=== PATIENT | male | born 1980 | race Caucasian/White ===

== ENCOUNTER 2017-02-23 21:08 | Emergency (ER) | payer OTHER ==
--- NOTE | 2017-02-23 22:11 | ED NURSING NOTES ---
Clinical Report - Nurses [facility] [address] [place] [address] 02/23/2017 21:09 Patient: VIRGEN WILLIAMSON TRIAGE Triage time 21:17. Acuity: LEVEL 4. Chief Complaint: INJURY TO LEFT KNEE. 21:21. Alert. SEPSIS SCREEN: Sepsis Screen. Negative (no infection suspected/documented). CECILIA COMA SCORE: Hartline Coma Scale: 15- eyes open spontaneously (4); best verbal response- oriented x 4 (5); best motor response- obeys commands (6). --21:21 Deni Arguello R.N. 21:16 02/23/17. BP: 139/74. HR: 83. RR: 12. O2 saturation: 96% on room air. Temp: 98.6 F (oral). Pain level now: 01/04. --21:21 Deni Arguello R.N. Weight: 113.3 kg stated. Height/Length: 69 inches Per Patient. BMI: 36.9. --21:20 Deni Arguello R.N. Medications None. --21:19 Deni Arguello R.N. Medication/allergy information source: the patient. --21:21 Deni Arguello R.N. Allergies No Known Drug Allergy. --21:19 Deni Arguello R.N. History Arrived by private vehicle. Historian: patient. Unaccompanied. Primary physician (Olaf). This occurred (1 weeks ago). Occurred (Gym). Mechanism of injury: (Landed on knee while wrestling). 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 PAST MEDICAL HX: Tetanus status: up-to-date. Immunizations: up-to-date. SOCIAL HX: Never smoker. No alcohol use or drug use. No infectious disease exposure. ABUSE ASSESSMENT: No report of abuse. FALL RISK ASSESSMENT: Fall risk assessment completed. No fall risk identified. NUTRITIONAL RISK ASSESSMENT: The nutritional risk assessment revealed no deficiencies. FUNCTIONAL ASSESSMENT: Functional assessment: no impairments noted. LEARNING NEEDS ASSESSMENT: The learning needs assessment revealed no barriers. SKIN INTEGRITY ASSESSMENT: Skin integrity risk assessment completed. No skin integrity risk identified. --21:21 Deni Arguello R.N. PROBLEMS: no known problems. ADDITIONAL SURGERIES: Cholecystectomy. --21:19 Deni Arguello R.N. Interventions ID band on patient. To treatment room. --21:21 Deni Arguello R.N. PHYSICAL ASSESSMENT 21:21. Ambulatory to room. GENERAL / NEURO / PSYCH: Oriented X 4. Alert. EXTREMITIES: Left knee: swelling and ecchymosis. SKIN: Skin intact. Skin is warm and dry. --21:21 Deni Arguello R.N. NURSING PROGRESS NOTES 21:22. Two patient identifiers checked. Call light placed in reach. Bed placed in lowest position. Brakes of bed on. Patient ready for evaluation- chart flagged. --21:22 Deni Arguello R.N. <<STRICKEN ENTRY-- 6 inch nila bandage applied to right knee by tech; distal pulses intact, sensation intact and motor function within normal limits. --22:13 Je Oneill, ER Bail Bonding Agent --END STRIKE>> Correction --22:13 Je Oneill, ER Bail Bonding Agent 6 inch nila bandage applied to left knee by tech; distal pulses intact, sensation intact and motor function within normal limits. --22:13 Je Oneill, ER Bail Bonding Agent 22:15. The patient is calm and resting quietly. GENERAL / NEURO / PSYCH: Alert. Oriented X 4. RESPIRATORY: No respiratory distress. SKIN: Skin is warm and dry. --22:19 Deni Arguello R.N. DISPOSITION / DISCHARGE Departure time: 22:18. Condition at departure: stable. No learning barriers present. Discharge instructions provided and reviewed with the patient. Patient verbalized understanding. Written instructions provided in Maori. The patient was discharged home and unaccompanied at time of discharge. He left the Emergency Department ambulatory and via private vehicle. Patient driving. FALL RISK ASSESSMENT: Fall risk assessment completed. No fall risk identified. --22:19 Deni Arguello R.N. 22:14 02/23/17. BP: 139/84. HR: 72. RR: 14. O2 saturation: 99% on room air. Pain level now: 12/04. --22:19 Deni Arguello R.N. Locked/Released at 02/23/2017 22:28 by Deni Arguello R.N.
--- NOTE | 2017-02-23 22:11 | ED ORDER SUMMARY ---
..... Patient: VIRGEN WILLIAMSON OrderSheet [facility] VisitID: [id number] [address] [place] [address] 36y, M Registration Date/Time: 02/23/2017 ORDER SHEET Weight: 113.3 kg (stated) Allergies: No Known Drug Allergy GENERAL ORDERS: Reynaldo Wrap (22:10 02/23/2017 Bertrand AMBROCIO) (Ack 22:11 Ebenezer Blevins) (22:13 Isaac Leak Hunter) MEDICATION ORDERS: IV FLUIDS: ORDER SHEET NOTES: [Electronically signed by Deni Arguello R.N. (22:28 02/23/2017)] [Electronically signed by Eloisa Campos MD (21:56 03/01/2017)] [Electronically locked/signed by Deni Arguello R.N. (22:28 02/23/2017)]
--- NOTE | 2017-02-23 22:11 | ED ORDER SUMMARY ---
..... Patient: VIRGEN WILLIAMSON OrderSheet [facility] VisitID: [id number] [address] [place] [address] 36y, M Registration Date/Time: 02/23/2017 ORDER SHEET Weight: 113.3 kg (stated) Allergies: No Known Drug Allergy GENERAL ORDERS: Reynaldo Wrap (22:10 02/23/2017 Bertrand AMBROCIO) (Ack 22:11 Ebenezer Blevins) (22:13 Isaac Newspaper Subscription Solicitor) MEDICATION ORDERS: IV FLUIDS: ORDER SHEET NOTES: [Electronically signed by Deni Arguello R.N. (22:28 02/23/2017)] [Electronically signed by Eloisa Campos MD (21:56 03/01/2017)] [Electronically locked/signed by Deni Arguello R.N. (22:28 02/23/2017)]
--- NOTE | 2017-02-23 22:11 | ED NURSING NOTES ---
Clinical Report - Nurses [facility] [address] [place] [address] 02/23/2017 21:09 Patient: VIRGEN WILLIAMSON TRIAGE Triage time 21:17. Acuity: LEVEL 4. Chief Complaint: INJURY TO LEFT KNEE. 21:21. Alert. SEPSIS SCREEN: Sepsis Screen. Negative (no infection suspected/documented). CECILIA COMA SCORE: Henagar Coma Scale: 15- eyes open spontaneously (4); best verbal response- oriented x 4 (5); best motor response- obeys commands (6). --21:21 Deni Arguello R.N. 21:16 02/23/17. BP: 139/74. HR: 83. RR: 12. O2 saturation: 96% on room air. Temp: 98.6 F (oral). Pain level now: 01/04. --21:21 Deni Arguello R.N. Weight: 113.3 kg stated. Height/Length: 69 inches Per Patient. BMI: 36.9. --21:20 Deni Arguello R.N. Medications None. --21:19 Deni Arguello R.N. Medication/allergy information source: the patient. --21:21 Deni Arguello R.N. Allergies No Known Drug Allergy. --21:19 Deni Arguello R.N. History Arrived by private vehicle. Historian: patient. Unaccompanied. Primary physician (Olaf). This occurred (1 weeks ago). Occurred (Gym). Mechanism of injury: (Landed on knee while wrestling). 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 PAST MEDICAL HX: Tetanus status: up-to-date. Immunizations: up-to-date. SOCIAL HX: Never smoker. No alcohol use or drug use. No infectious disease exposure. ABUSE ASSESSMENT: No report of abuse. FALL RISK ASSESSMENT: Fall risk assessment completed. No fall risk identified. NUTRITIONAL RISK ASSESSMENT: The nutritional risk assessment revealed no deficiencies. FUNCTIONAL ASSESSMENT: Functional assessment: no impairments noted. LEARNING NEEDS ASSESSMENT: The learning needs assessment revealed no barriers. SKIN INTEGRITY ASSESSMENT: Skin integrity risk assessment completed. No skin integrity risk identified. --21:21 Deni Arguello R.N. PROBLEMS: no known problems. ADDITIONAL SURGERIES: Cholecystectomy. --21:19 Deni Arguello R.N. Interventions ID band on patient. To treatment room. --21:21 Deni Arguello R.N. PHYSICAL ASSESSMENT 21:21. Ambulatory to room. GENERAL / NEURO / PSYCH: Oriented X 4. Alert. EXTREMITIES: Left knee: swelling and ecchymosis. SKIN: Skin intact. Skin is warm and dry. --21:21 Deni Arguello R.N. NURSING PROGRESS NOTES 21:22. Two patient identifiers checked. Call light placed in reach. Bed placed in lowest position. Brakes of bed on. Patient ready for evaluation- chart flagged. --21:22 Deni Arguello R.N. <<STRICKEN ENTRY-- 6 inch nila bandage applied to right knee by tech; distal pulses intact, sensation intact and motor function within normal limits. --22:13 Je Oneill, ER [place] Technician --END STRIKE>> Correction --22:13 Je Oneill, ER Oil Bay Technician 6 inch nila bandage applied to left knee by tech; distal pulses intact, sensation intact and motor function within normal limits. --22:13 Je Oneill, ER [place] Technician 22:15. The patient is calm and resting quietly. GENERAL / NEURO / PSYCH: Alert. Oriented X 4. RESPIRATORY: No respiratory distress. SKIN: Skin is warm and dry. --22:19 Deni Arguello R.N. DISPOSITION / DISCHARGE Departure time: 22:18. Condition at departure: stable. No learning barriers present. Discharge instructions provided and reviewed with the patient. Patient verbalized understanding. Written instructions provided in Chinese. The patient was discharged home and unaccompanied at time of discharge. He left the Emergency Department ambulatory and via private vehicle. Patient driving. FALL RISK ASSESSMENT: Fall risk assessment completed. No fall risk identified. --22:19 Deni Arguello R.N. 22:14 02/23/17. BP: 139/84. HR: 72. RR: 14. O2 saturation: 99% on room air. Pain level now: 12/04. --22:19 Deni Arguello R.N. Locked/Released at 02/23/2017 22:28 by Deni Arguello R.N.
--- NOTE | 2017-02-23 22:11 | ED CLINICAL REPORT ---
Clinical Report - Physicians/Mid Levels [facility] [address] [place] [address] 02/23/2017 21:09 Patient: VIRGEN WILLIAMSON Time Seen: 21:19. Arrived- By private vehicle. Historian- patient. HISTORY OF PRESENT ILLNESS Chief Complaint: LOWER EXTREMITY PAIN and SWELLING. Flexion and not relieved by anything- worsened by flexion and not relieved by anything. This started about 1 week ago and is still present and now worse. Severity is described as being moderate. The quality is noted to be "pain". Symptoms located in the area of the left thigh and left knee. The patient has had swelling, but not had redness. No difficulty walking. No bladder dysfunction, bowel dysfunction, sensory loss or motor loss. ( Patient states that he has not had any trouble with ambulation. He states that his knee feels stable.). 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 The impact was just above his left knee. Patient states he was able to finish the match however he noticed increasing swelling along with some pain in the area of impact. Patient states he has been functional however over the last 3 days he's noticed increasing swelling to the point where it is difficult for him to flex his knee. The swelling is located just superior to his left patella. No other injuries.). Similar symptoms previously: None. Recent medical care: Not recently seen/assessed. REVIEW OF SYSTEMS No cough, chest pain, difficulty breathing, fever or skin rash. No enlarged lymph nodes, neck pain, back pain, headache or blurred vision. No sore throat, abdominal pain, vomiting, diarrhea or black stools. No difficulty with urination or bloody stools. All systems otherwise negative, except as recorded above. PAST HISTORY Problems: no known problems. Additional Surgeries: Cholecystectomy. Medications: None. Allergies: No Known Drug Allergy. SOCIAL HISTORY Never smoker. No alcohol use or drug use. ADDITIONAL NOTES The nursing notes have been reviewed. PHYSICAL EXAM Vital Signs: 02/23/2017 21:16 BP: 139/74. HR: 83. RR: 12. O2 saturation: 96%. Temp: 98.6 F. Pain level now: 01/04. Have been reviewed. Appearance: Alert. Oriented X3. No acute distress. Eyes: Eyes normal inspection. ENT: Nose normal. Neck: Neck supple. CVS: Pulses normal. Strong peripheral pulses. Respiratory: No respiratory distress. Back: ROM normal. Skin: Skin intact. Skin warm and dry. Normal skin color. Normal skin turgor. Extremities: Left thigh: moderate tenderness and swelling located in the anterior aspect of lower thigh. Neurovascular intact distally. (The area is fluctuant.). No erythema, laceration, abrasion, ecchymosis or puncture wound. No foreign body or deformity. Extremities otherwise negative. Neuro: Oriented X 3. No motor deficit. No sensory deficit. LABS, X-RAYS, AND EKG Pulse Oximetry: 02/23/2017 21:16 O2 saturation: 96%. (FIO2 - room air). Interpretation: normal. PROGRESS AND PROCEDURES Course of Care: patient's symptoms were consistent with a hematoma. Due to the discomfort and this is causing the patient I did agree to aspirate the hematoma. This was done under sterile precautions and I did obtain 75 cc of dark red serosanguineous fluid. No purulence was noted. I did have staff wrap the patient's knee with a large nila wrap. I have advised the patient follow up his primary care physician if the swelling recurs. No evidence of infection is noted. Patient counseled in person regarding the patient's stable condition, diagnosis and need for follow-up. Old medical records reviewed. Disposition: Discharged. Condition: stable and improved. CLINICAL IMPRESSION Single hematoma to the left thigh. INSTRUCTIONS Apply ice for 20 minutes four times a day as needed and until better. Don't apply ice directly to skin and don't use while asleep. Elevate affected areas above chest level as needed and until better. You may walk and bear weight as tolerated. Warnings: GENERAL WARNINGS: Return or contact your physician immediately if your condition worsens or changes unexpectedly, if not improving as expected, or if other problems arise. Follow-up: Follow up with your doctor as needed. Understanding of the discharge instructions verbalized by patient. (Electronically signed by Eloisa Campos MD 03/01/2017 21:56)
--- NOTE | 2017-03-01 21:56 | ED MAR SUMMARY ---
..... Medication Administration Record [address], [place] [id number] Patient: VIRGEN WILLIAMSON Visit ID: [id number] 36y, M Weight: 113.3 kg Height/Length: 69 in BMI: 36.9 ALLERGIES: No Known Drug Allergy
--- NOTE | 2017-03-01 21:56 | ED DISCHARGE INSTRUCTIONS ---
Patient: VIRGEN WILLIAMSON General Instructions [facility] VisitID: [id number] [address] [place] [address] 36y, M Registration Date/Time: 02/23/2017 Single hematoma to the left thigh. INSTRUCTIONS Apply ice for 20 minutes four times a day as needed and until better. Don't apply ice directly to skin and don't use while asleep. Elevate affected areas above chest level as needed and until better. You may walk and bear weight as tolerated. Warnings: GENERAL WARNINGS: Return or contact your physician immediately if your condition worsens or changes unexpectedly, if not improving as expected, or if other problems arise. Follow-up: Follow up with your doctor as needed. Understanding of the discharge instructions verbalized by patient. ADDITIONAL INFORMATION Hematoma A hematoma is caused by an injury with damage to small blood vessels. This causes blood to leak into the tissues. Blood forms a pocket under the skin that swells and looks like a purplish patch. Gradually the blood in the hematoma is absorbed back into the body. The swelling and pain of the hematoma will go away. This takes from one to four weeks, depending on the size of the hematoma. The skin over the hematoma may turn bluish then brown and yellow as the blood is dissolved and absorbed. Home Care: Limit motion of the joints near the hematoma. If the hematoma is large and painful, you should avoid sports and other vigorous physical activity until the swelling and pain goes away. Apply an ice pack (ice cubes in a plastic bag, wrapped in a towel) over the injured area for 20 minutes every 1-2 hours the first day. You should continue with ice packs 3-4 times a day for the next two days. Continue the use of ice packs for relief of pain and swelling as needed. You may use acetaminophen (Tylenol) or ibuprofen (Motrin, Advil) to control pain, unless another pain medicine was prescribed. [ NOTE : If you have chronic liver or kidney disease or ever had a stomach ulcer or GI bleeding, talk with your doctor before using these medicines.] Follow Up with your doctor or as advised by our staff. [ NOTE: A radiologist will review any X-rays that were taken. We will notify you of any new findings that may affect your care.] Get Prompt Medical Attention if any of the following occur: Redness around the hematoma Increase in pain or warmth in the hematoma Increase in size of the hematoma Fever of 100.4F (38C) or higher, or as directed by your healthcare provider If the hematoma is on the arm or leg, watch for: Increased swelling or pain in the extremity Numbness or tingling or blue color of the hand or foot You have been given the following additional information: Hematoma You may walk and bear weight as tolerated. (Electronically signed by Eloisa Campos MD 03/01/2017 21:56)
--- NOTE | 2017-03-01 21:56 | ED MAR SUMMARY ---
..... Medication Administration Record [facility] [address], [place] [id number] Patient: VIRGEN WILLIAMSON Visit ID: [id number] 36y, M Weight: 113.3 kg Height/Length: 69 in BMI: 36.9 ALLERGIES: No Known Drug Allergy
--- NOTE | 2017-03-01 21:57 | ED MED RECONCILIATION SUMMARY ---
Patient: VIRGEN WILLIAMSON Medication Reconciliation Report [facility] VisitID: [id number] [address] [place] [address] 36y, M Registration Date/Time: 02/23/2017 Weight: 113.3 kg Height/Length: 69 in. BMI: 36.9 ALLERGIES: No Known Drug Allergy The patient's Home Medications are listed below: NONE. The source(s) of the original Home Medication information: patient The following Medications were given to the patient in the Emergency Department: None. The following Medications were prescribed to the patient: None.
--- NOTE | 2017-03-01 21:57 | ED MED RECONCILIATION SUMMARY ---
Patient: VIRGEN WILLIAMSON Medication Reconciliation Report [facility] VisitID: [id number] [address] [place] [address] 36y, M Registration Date/Time: 02/23/2017 Weight: 113.3 kg Height/Length: 69 in. BMI: 36.9 ALLERGIES: No Known Drug Allergy The patient's Home Medications are listed below: NONE. The source(s) of the original Home Medication information: patient The following Medications were given to the patient in the Emergency Department: None. The following Medications were prescribed to the patient: None.
== END 2017-02-23 22:18 | disposition home or self-care (01) ==
LOC: ED SRH 21:08
DX: S70.12XA Contusion of left thigh, initial encounter (principal); M79.89 Other specified soft tissue disorders; W50.0XXA Accidental hit or strike by another person, initial encounter; Y93.72 Activity, wrestling; Y92.39 Other specified sports and athletic area as the place of occurrence of the external cause; Y99.8 Other external cause status

== ENCOUNTER 2017-03-01 18:01 | Emergency (ER) | payer OTHER ==
--- NOTE | 2017-03-01 23:16 | ED ORDER SUMMARY ---
..... Patient: VIRGEN WILLIAMSON OrderSheet [facility] VisitID: [id number] [address] [place] [address] 36y, M Registration Date/Time: 03/01/2017 ORDER SHEET Weight: 113.3 kg (stated) Allergies: No Known Drug Allergy GENERAL ORDERS: Knee 4V Left Urgent (21:54 03/01/2017 Amado AMBROCIO) (Ack 22:01 Mariam) (22:50 [facility]) MEDICATION ORDERS: IV FLUIDS: ORDER SHEET NOTES: [Electronically signed by Trae Nance R.N. (23:29 03/01/2017)] [Electronically signed by Angel Swanson MD (10:55 03/04/2017)] [Electronically locked/signed by Trae Nance R.N. (23:29 03/01/2017)]
--- NOTE | 2017-03-01 23:16 | ED ORDER SUMMARY ---
..... Patient: VIRGEN WILLIAMSON OrderSheet [facility] VisitID: [id number] [address] [place] [address] 36y, M Registration Date/Time: 03/01/2017 ORDER SHEET Weight: 113.3 kg (stated) Allergies: No Known Drug Allergy GENERAL ORDERS: Knee 4V Left Urgent (21:54 03/01/2017 Amado AMBROCIO) (Ack 22:01 Mariam) (22:50 [facility]) MEDICATION ORDERS: IV FLUIDS: ORDER SHEET NOTES: [Electronically signed by Trae Nance R.N. (23:29 03/01/2017)] [Electronically signed by Angel Swanson MD (10:55 03/04/2017)] [Electronically locked/signed by Trae Nance R.N. (23:29 03/01/2017)]
--- NOTE | 2017-03-01 23:16 | ED CLINICAL REPORT ---
Clinical Report - Physicians/Mid Levels [facility] [address] [place] [address] 03/01/2017 18:02 Patient: VIRGEN WILLIAMSON Time Seen: 21:29. Arrived- By private vehicle. Historian- patient. HISTORY OF PRESENT ILLNESS Chief Complaint: Injury to left knee. The injury happened about 2 weeks ago. The patient sustained a twisting injury. (On a wrestling mat). Patient is not experiencing pain. No other injury. (he was seen here previously and had aspiration of his knee done. He was then subsequently seen in follow-up with his primary care provider and again and had to be he reports that the dark bloody material comes from the knee. He is concerned because in spite of these drainages the swelling recurs. He denies any pain. he says that his leg does not feel unstable either. He says that he is able to walk normally. He denies fevers chills sweats nausea vomiting or diarrhea.). REVIEW OF SYSTEMS The patient has had new onset of moderate swelling of the left knee. No tingling, weakness, numbness or skin laceration. He has no pain on weight bearing. All systems otherwise negative, except as recorded above. SOCIAL HISTORY Never smoker. No alcohol use or drug use. He lives with spouse and a family member. Has good social support. FAMILY HISTORY Denies family medical history. ADDITIONAL NOTES The nursing notes have been reviewed. PHYSICAL EXAM Vital Signs: 03/01/2017 18:39 BP: 132/77. HR: 88. RR: 16. O2 saturation: 95%. Temp: 98.9 F. Pain level now: 12/04. Have been reviewed. Appearance: Alert. Head: Head atraumatic. Eyes: Pupils equal, round and reactive to light. ENT: Pharynx normal. Neck: C-spine non-tender. CVS: Heart sounds normal. Respiratory: Breath sounds normal. Abdomen: No visible injury. Soft and nontender. Bowel sounds normal. No organomegaly. No mass. Back: Normal inspection. ROM normal. Skin: Skin warm and dry. Normal skin color. Normal skin turgor. Extremities: Left knee: moderate swelling located in the suprapatellar area. Medium sized joint effusion present. Neurovascular intact distally. No ligamentous laxity present. No ecchymosis or deformity. No limitation in ROM. Extremities otherwise negative. Gait: Normal gait. Neuro, Vascular and Tendons: Vascular status intact. Sensation intact. Motor intact. LABS, X-RAYS, AND EKG Lt Knee X-ray: Small joint effusion. The X-rays were independently viewed by me. PROGRESS AND PROCEDURES Course of Care: Patient is stable. Patient/family counseled. Old medical records reviewed. Disposition: Discharged. Condition: stable. CLINICAL IMPRESSION Left knee effusion INSTRUCTIONS Apply ice for 20 minutes four times a day until better. Don't apply ice directly to skin. You may walk and bear weight as tolerated. Warnings: COMPLICATIONS: Complications from this condition include: possible injury to a tendon and possible injury to a ligament. Future problems may include loss of function and deformity. It is important to follow up with a physician for further evaluation and treatment. Further evaluation is necessary. GENERAL WARNINGS: Return or contact your physician immediately if your condition worsens or changes unexpectedly, if not improving as expected, or if other problems arise. OTC Medications: Motrin (available over the counter): take according to label instructions. Follow-up: Follow up with an orthopedic surgeon in five days. Call for the next available appointment. Understanding of the discharge instructions verbalized by patient and family. (Electronically signed by Angel Swanson MD 03/04/2017 10:55)
--- NOTE | 2017-03-01 23:16 | ED NURSING NOTES ---
Clinical Report - Nurses [facility] [address] [place] [address] 03/01/2017 18:02 Patient: VIRGEN WILLIAMSON TRIAGE Triage time 18:39 Mar 01 2017. Acuity: LEVEL 3. Chief Complaint: INJURY TO LEFT KNEE. Alert. JUNITO COMA SCORE: Junito Coma Scale: 15- eyes open spontaneously (4); best verbal response- oriented x 4 (5); best motor response- obeys commands (6). --18:51 Deni Sanchez R.N. 18:39 03/01/17. BP: 132/77. HR: 88. RR: 16. O2 saturation: 95%. Temp: 98.9 F. Pain level now: 12/04. Additional comments: (L) Knee. --18:51 Deni Sanchez R.N. Weight: 113.3 kg stated. Height/Length: 69 inches Per Patient. BMI: 36.9. --18:47 Deni Sanchez R.N. Medication/allergy information source: the patient. --18:51 Deni Sanchez R.N. Allergies No Known Drug Allergy. --23:28 Trae Nance R.N. History Arrived by private vehicle. Historian: patient. Accompanied by family. Primary physician ([facility]). ( (L) Knee Pain/Swelling. Pt states that the original injury happened in a wrestling match 2 weeks ago. Since that time, he has been to the ED, seen his PCP, and been to a walk-in clinic to have his knee drained of redish fluid. Fluid has once again accumulated and his knee still hurts.). This occurred (about 2 weeks ago). Treatment ACCORDION TUNER: None. PAST MEDICAL HX: Tetanus status: unknown. Immunizations: status is unknown. SOCIAL HX: Never smoker. No alcohol use or drug use. No infectious disease exposure. ABUSE ASSESSMENT: No report of abuse. FALL RISK ASSESSMENT: Fall risk assessment completed. No fall risk identified. NUTRITIONAL RISK ASSESSMENT: The nutritional risk assessment revealed no deficiencies. FUNCTIONAL ASSESSMENT: Functional assessment: no impairments noted. LEARNING NEEDS ASSESSMENT: The learning needs assessment revealed no barriers. SKIN INTEGRITY ASSESSMENT: Skin integrity risk assessment completed. No skin integrity risk identified. --18:51 Deni Sanchez R.N. PROBLEMS: Hematoma. --18:48 Deni Sanchez R.N. ADDITIONAL SURGERIES: Cholecystectomy. --18:48 Deni Sanchez R.N. Interventions ID band on patient. To treatment room. --18:51 Deni Sanchez R.N. PHYSICAL ASSESSMENT Ambulatory to room. GENERAL / NEURO / PSYCH: Oriented X 4. EXTREMITIES: Capillary refill is less than 2 seconds in the extremities. Extremity pulses are within normal limits. Extremities exhibit normal ROM. Neuro-vascular status intact to the extremity. Normal gait. Left knee: tenderness (swelling). SKIN: Skin intact. Skin is warm and dry. --18:52 Deni Sanchez R.N. NURSING PROGRESS NOTES <<STRICKEN ENTRY-- C-collar applied. Reassurance given. Patient identifiers checked. Call light placed in reach. Side rails up x 1. Bed placed in lowest position. Brakes of bed on. Patient ready for evaluation- chart flagged and ED physician notified. --18:52 Deni Sanchez R.N. --END STRIKE>> Correction --19:14 Deni Sanchez R.N. Patient gowned. Reassurance given. Patient identifiers checked. Call light placed in reach. Side rails up x 1. Bed placed in lowest position. Brakes of bed on. Patient ready for evaluation- chart flagged and ED physician notified. --19:14 Deni Sanchez R.N. 19:29 03/01/17. Patient waiting for evaluation. ( Patient states records from soft tissue ultrasound should be available [facility] . Will call for records.). --19:29 Alix Lee R.N. 19:29 03/01/17. BP: 122/60. HR: 90. RR: 16. O2 saturation: 97%. Pain level now 12/04. --19:29 Alix Lee R.N. 21:10 03/01/17. Patient waiting for evaluation. ( Informed that MD was with critical patients and new MD coming in and would be in to evaluate shortly. Pt understanding and not upset with the wait). --21:10 Alix Lee R.N. 22:41 03/01/17. Patient walked to radiology with tech. --22:41 Alix Lee R.N. 22:50 03/01/17. Patient walked back to ED from radiology. --22:54 Alix Lee R.N. 23:10 03/01/17. The patient is calm and resting quietly. Overall patient status is the same- he states feels the same. Patient waiting for radiology results and disposition. --23:10 Alix Lee R.N. DISPOSITION / DISCHARGE Departure time: 23:28. Condition at departure: improved. No learning barriers present. Discharge instructions provided and reviewed with the patient. Patient verbalized understanding. Written instructions provided in Libyan. The patient was discharged by the physician. He was discharged home and accompanied by spouse. He left the Emergency Department ambulatory on crutches and via private vehicle. Spouse driving. JUNITO COMA SCORE: Deer Coma Scale: 15- eyes open spontaneously (4); best verbal response- oriented x 4 (5); best motor response- obeys commands (6). --23:28 Trae Nance R.N. 23:26 03/01/17. BP: 132/80. HR: 72. RR: 18. O2 saturation: 98%. Pain level now 2/10. --23:28 Trae Nance R.N. Locked/Released at 03/01/2017 23:29 by Trae Nance R.N.
--- NOTE | 2017-03-01 23:32 | DIAGNOSTIC IMAGING REPORT ---
PROCEDURE: XR KNEE 4 VIEWS - LEFT INDICATION: TRAUMA/INJURY TECHNIQUE: Four views. COMPARISON: None. FINDINGS: Osseous structures and joint spaces are normal. IMPRESSION: 1. Normal left knee.
--- NOTE | 2017-03-04 10:56 | ED MAR SUMMARY ---
..... Medication Administration Record [facility] [address] [place] [id number] Patient: VIRGEN WILLIAMSON Visit ID: [id number] 36y, M Weight: 113.3 kg Height/Length: 69 in BMI: 36.9 ALLERGIES: No Known Drug Allergy
--- NOTE | 2017-03-04 10:56 | ED MED RECONCILIATION SUMMARY ---
Patient: VIRGEN WILLIAMSON Medication Reconciliation Report [facility] VisitID: [id number] [address] [place] [address] 36y, M Registration Date/Time: 03/01/2017 Weight: 113.3 kg Height/Length: 69 in. BMI: 36.9 ALLERGIES: No Known Drug Allergy The patient's Home Medications are listed below: Not obtained. The source(s) of the original Home Medication information: patient The following Medications were given to the patient in the Emergency Department: None. The following Medications were prescribed to the patient: Motrin (available over the counter): take according to label instructions. -- Angel Swanson MD
--- NOTE | 2017-03-04 10:56 | ED MED RECONCILIATION SUMMARY ---
Patient: VIRGEN WILLIAMSON Medication Reconciliation Report [facility] VisitID: [id number] [address] [place] [address] 36y, M Registration Date/Time: 03/01/2017 Weight: 113.3 kg Height/Length: 69 in. BMI: 36.9 ALLERGIES: No Known Drug Allergy The patient's Home Medications are listed below: Not obtained. The source(s) of the original Home Medication information: patient The following Medications were given to the patient in the Emergency Department: None. The following Medications were prescribed to the patient: Motrin (available over the counter): take according to label instructions. -- Angel Swanson MD
--- NOTE | 2017-03-04 10:56 | ED MAR SUMMARY ---
..... Medication Administration Record [facility] [address] [place], [place] [id number] Patient: VIRGEN WILLIAMSON Visit ID: [id number] 36y, M Weight: 113.3 kg Height/Length: 69 in BMI: 36.9 ALLERGIES: No Known Drug Allergy
--- NOTE | 2017-03-04 10:56 | ED DISCHARGE INSTRUCTIONS ---
Patient: VIRGEN WILLIAMSON General Instructions [facility] VisitID: [id number] [place] [address] 36y, M Registration Date/Time: 03/01/2017 Left knee effusion INSTRUCTIONS Apply ice for 20 minutes four times a day until better. Don't apply ice directly to skin. You may walk and bear weight as tolerated. Warnings: COMPLICATIONS: Complications from this condition include: possible injury to a tendon and possible injury to a ligament. Future problems may include loss of function and deformity. It is important to follow up with a physician for further evaluation and treatment. Further evaluation is necessary. GENERAL WARNINGS: Return or contact your physician immediately if your condition worsens or changes unexpectedly, if not improving as expected, or if other problems arise. OTC Medications: Motrin (available over the counter): take according to label instructions. Follow-up: Follow up with an orthopedic surgeon in five days. Call for the next available appointment. Understanding of the discharge instructions verbalized by patient and family. ADDITIONAL INFORMATION Knee Effusion A knee effusion is sometimes calledwater on the knee. The knee joint normally contains less than one ounce of lubricating fluid. Injury or inflammation of the knee joint causes extra fluid to collect there. When this occurs, the knee joint looks swollen and is usually painful. There may be difficulty in fully bending the knee. The most common cause of knee effusion is osteoarthritis due to wear and tear on the joint cartilage. Other causes include injury to the cartilage, inflammatory arthritis (such as gout or rheumatoid arthritis), and infection of the joint. If the cause of your knee effusion is not certain, a needle aspiration may be performed. This procedure removes a sample of joint fluid from the knee for testing. This is done with a local anesthetic. Removing excess fluid may also relieve swelling and pain. Home Care: Limit your activities. Avoid weight-bearing activities as much as possible when your knee is painful and swollen. Keep your leg elevated to reduce pain and swelling. When sleeping, place a pillow under the injured leg. When sitting, support the injured leg so it is level with your waist. This is very important during the first 48 hours. Apply an ice pack (ice cubes in a plastic bag, wrapped in a towel) over the injured area for 20 minutes every 1-2 hours the first day. Continue with ice packs 3-4 times a day for the next two days, then as needed for the relief of pain and swelling. You may use acetaminophen (Tylenol) or ibuprofen (Motrin, Advil) to control pain, unless another pain medicine was prescribed. [NOTE: If you have chronic liver or kidney disease or have ever had a stomach ulcer, talk with your doctor before using these medicines.] Ifcrutches or a walker have been recommended, do not bear full weight on the injured leg until you can do so without pain. Check with your doctor before returning to sports or full work duties. If you were given a Velcro knee brace: You may open the splint to apply ice. You may remove the splint to bathe and sleep, unless told otherwise. Follow Up with your doctor or as advised by our staff. If you are overweight, talk to your doctor about a weight loss program. The excess weight puts extra strain on your knees. Return Promptly or contact your doctor if any of the following occur: Increasing pain, redness or swelling of the knee Fever of 100.4F (38C) or higher, or as directed by your healthcare provider Ibuprofen Oral tablet What is this medicine? IBUPROFEN (eye BYOO proe fen) is a non-steroidal anti-inflammatory drug (NSAID). It is used for dental pain, fever, headaches or migraines, osteoarthritis, rheumatoid arthritis, or painful monthly periods. It can also relieve minor aches and pains caused by a cold, flu, or sore throat. How should I use this medicine? Take this medicine by mouth with a glass of water. Follow the directions on the prescription label. Take this medicine with food if your stomach gets upset. Try to not lie down for at least 10 minutes after you take the medicine. Take your medicine at regular intervals. Do not take your medicine more often than directed. A special MedGuide will be given to you by the pharmacist with each prescription and refill. Be sure to read this information carefully each time. Talk to your biscuit machine operator regarding the use of this medicine in children. Special care may be needed. What side effects may I notice from receiving this medicine? Side effects that you should report to your doctor or health healthcare business analyst as soon as possible: allergic reactions like skin rash, itching or hives, swelling of the face, lips, or tongue black or bloody stools, blood in the urine or in vomit breathing problems changes in vision chest pain general ill feeling or flu-like symptoms nausea or vomiting redness, blistering, peeling or loosening of the skin, including inside the mouth slurred speech or weakness on one side of the body stomach pain unexplained weight gain or swelling unusually weak or tired yellowing of eyes or skin Side effects that usually do not require medical attention (report to your doctor or health healthcare business analyst if they continue or are bothersome): constipation or diarrhea dizziness gas or heartburn stomach upset What may interact with this medicine? Do not take this medicine with any of the following medications: cidofovir ketorolac methotrexate pemetrexed This medicine may also interact with the following medications: alcohol aspirin diuretics lithium other drugs for inflammation like prednisone warfarin What if I miss a dose? If you miss a dose, take it as soon as you can. If it is almost time for your next dose, take only that dose. Do not take double or extra doses. Where should I keep my medicine? Keep out of the reach of children. Store at room temperature between 15 and 30 degrees C (59 and 86 degrees F). Keep container tightly closed. Throw away any unused medicine after the expiration date. What should I tell my health care provider before I take this medicine? They need to know if you have any of these conditions: asthma cigarette smoker drink more than 3 alcohol containing drinks a day heart disease or circulation problems such as heart failure or leg edema (fluid retention) high blood pressure kidney disease liver disease stomach bleeding or ulcers an unusual or allergic reaction to ibuprofen, aspirin, other NSAIDS, other medicines, foods, dyes, or preservatives or trying to get breast-feeding What should I watch for while using this medicine? Tell your doctor or healthcare professional if your symptoms do not start to get better or if they get worse. This medicine does not prevent heart attack or stroke. In fact, this medicine may increase the chance of a heart attack or stroke. The chance may increase with longer use of this medicine and in people who have heart disease. If you take aspirin to prevent heart attack or stroke, talk with your doctor or health healthcare business analyst. Do not take other medicines that contain aspirin, ibuprofen, or naproxen with this medicine. Side effects such as stomach upset, nausea, or ulcers may be more likely to occur. Many medicines available without a prescription should not be taken with this medicine. This medicine can cause ulcers and bleeding in the stomach and intestines at any time during treatment. Ulcers and bleeding can happen without warning symptoms and can cause . To reduce your risk, do not smoke cigarettes or drink alcohol while you are taking this medicine. You may get drowsy or dizzy. Do not drive, use machinery, or do anything that needs mental alertness until you know how this medicine affects you. Do not stand or sit up quickly, especially if you are an older patient. This reduces the risk of dizzy or fainting spells. This medicine can cause you to bleed more easily. Try to avoid damage to your teeth and gums when you brush or floss your teeth. You have been given the following additional information: Knee Effusion Ibuprofen Oral tablet You may walk and bear weight as tolerated. (Electronically signed by Angel Swanson MD 03/04/2017 10:55)
== END 2017-03-01 23:30 | disposition home or self-care (01) ==
LOC: ED SRH 18:01
DX: M25.462 Effusion, left knee (principal)